=== PATIENT | male | born 1985 | race American Indian/Alaskan Native ===

== ENCOUNTER 2017-07-22 16:52 | Emergency (ER) | payer SELFPAY ==
--- NOTE | 2017-07-22 19:27 | Emergency Department Report ---
ED Lower Extremity HPI - General Chief Complaint: Extremity Injury, Lower Stated Complaint: RT LEG/KNEE PAIN Time Seen by Provider: 07/22/17 19:16 Source: patient Mode of arrival: Ambulatory Limitations: No Limitations - History of Present Illness Initial Comments: Pt presents to ED with c/o fall off a [employer] truck. Pt sustained right knee injury. No head injury , no LOC. Pt c/o some discomfort in his right knee. Pt had mild swelling with some tenderness. Pt uses a rt knee brace and has being applying icy hot. Pain is getting better. , swelling has resolved MD Complaint: knee injury -: days(s) (5) Injury: Knee: Right Type of Injury: other (twisting motion on right knee) Place: work Severity: moderate Severity scale (0 -10): 7 (now pain is much better) Improves With: cold therapy, other (icy hot, knee brace) Context: fall (off an [employer] truck) Associated Symptoms: swelling, able to partially bear weight. denies: numbness , tingling Treatments Prior to Arrival: cold therapy, bandage, splint (knee brace) - Related Data Previous Rx's Medication Instructions Recorded Last Taken Type Ibuprofen [Motrin 800 MG tab] 800 mg PO Q8HR PRN #30 tablet 07/22/17 Unknown Rx Orphenadrine (Nf) [Norflex (Nf)] 100 mg PO BID #14 tablet 07/22/17 Unknown Rx Allergies Allergy/AdvReac Type Severity Reaction Status Date / Time No Known Allergies Allergy Verified 07/22/17 18:21 ED Review of Systems ROS: Stated complaint: RT LEG/KNEE PAIN Other details as noted in HPI Comment: All other systems reviewed and negative Constitutional: denies: diaphoresis, fever, malaise, weakness, other Eyes: denies: eye pain, eye discharge, vision change ENT: denies: throat pain, dental pain, hearing loss Respiratory: denies: see HPI, cough, orthopnea, shortness of breath, SOB with exertion Cardiovascular: denies: chest pain, palpitations, edema, syncope Endocrine: no symptoms reported. denies: excessive sweating, intolerance to cold, increased hunger, increased thirst Gastrointestinal: denies: abdominal pain, nausea, vomiting, diarrhea, constipation Musculoskeletal: as per HPI, joint swelling, arthralgia (right knee). denies: myalgia, other Skin: denies: lesions, change in color, change in hair/nails Neurological: denies: headache, weakness, numbness, confusion ED Past Medical Hx - Past Medical History Previous Medical History?: No - Surgical History Past Surgical History?: Yes Additional Surgical History: Inguinal hernia repair - Social History Smoking Status: Never Smoker Substance Use Type: Marijuana - Medications Home Medications: Home Medications Medication Instructions Recorded Confirmed Last Taken Type Ibuprofen [Motrin 800 MG tab] 800 mg PO Q8HR PRN #30 tablet 07/22/17 Unknown Rx Orphenadrine (Nf) [Norflex (Nf)] 100 mg PO BID #14 tablet 07/22/17 Unknown Rx ED Physical Exam - General Limitations: No Limitations General appearance: alert, in no apparent distress - Head Head exam: Present: atraumatic, normocephalic, normal inspection - Eye Eye exam: Present: normal appearance, PERRL, EOMI. Absent: scleral icterus, conjunctival injection, nystagmus Pupils: Present: normal accommodation - ENT ENT exam: Present: normal exam, normal orophraynx, mucous membranes moist, normal external ear exam - Neck Neck exam: Present: normal inspection, full ROM. Absent: meningismus, lymphadenopathy, thyromegaly - Respiratory Respiratory exam: Present: normal lung sounds bilaterally. Absent: respiratory distress, chest wall tenderness, accessory muscle use, decreased breath sounds - Cardiovascular Cardiovascular Exam: Present: regular rate, normal rhythm, normal heart sounds. Absent: irregular rhythm, systolic murmur, diastolic murmur, rubs - GI/Abdominal GI/Abdominal exam: Present: soft, normal bowel sounds. Absent: distended, tenderness, guarding, rebound, hyperactive bowel sounds, hypoactive bowel sounds - Rectal Rectal exam: Present: deferred - Expanded Lower Extremity Exam Right Hip exam: Present: normal inspection, full ROM. Absent: tenderness, swelling, laceration, ecchymosis Upper Leg exam: Present: normal inspection, full ROM. Absent: tenderness, swelling, abrasion Knee exam: Present: normal inspection, full ROM, tenderness (mild). Absent: swelling, abrasion, laceration, dislocation, erythema, effusion Lower Leg exam: Present: normal inspection, full ROM. Absent: tenderness, swelling, abrasion, laceration, ecchymosis Ankle exam: Present: normal inspection, full ROM. Absent: abrasion, laceration Foot/Toe exam: Present: normal inspection, full ROM. Absent: tenderness, swelling, dislocation, erythema Neuro vascular tendon exam: Present: no vascular compromise Gait: Positive: observed and normal - Back Exam Back exam: Present: normal inspection, full ROM. Absent: tenderness, CVA tenderness (L) - Neurological Exam Neurological exam: Present: alert, oriented X3, CN II-XII intact, normal gait ED Course Vital Signs 07/22/17 18:21 Temperature 98 F Pulse Rate 65 Respiratory 18 Rate Blood Pressure 126/85 O2 Sat by Pulse 98 Oximetry Critical Care Time: No Critical care attestation.: If time is entered above; I have spent that time in minutes in the direct care of this critically ill patient, excluding procedure time. ED Disposition Clinical Impression: Right knee sprain Disposition: - TO HOME OR SELFCARE Is pt being admited?: No Does the pt Need Aspirin: No Condition: Stable Instructions: Knee Sprain (ED), Knee Exercises (GEN), Hinged Knee Brace (ED) Additional Instructions: Follow up with your PCP in 2-3 days Prescriptions: Ibuprofen [Motrin 800 MG tab] 800 mg PO Q8HR PRN #30 tablet PRN Reason: Pain Orphenadrine (Nf) [Norflex (Nf)] 100 mg PO BID #14 tablet Referrals: PRIMARY CARE, [Primary Care Provider] - 3-5 Days Time of Disposition: 19:27
[2017-07-22 19:51] VITALS: BP 120/83
== END 2017-07-22 19:52 | disposition home or self-care (01) ==
LOC: ED 16:52
DX: S83.91XA Sprain of unspecified site of right knee, initial encounter (principal); F12.10 Cannabis abuse, uncomplicated; X58.XXXA Exposure to other specified factors, initial encounter; Y93.89 Activity, other specified; Y92.89 Other specified places as the place of occurrence of the external cause; Y99.8 Other external cause status
CPT/HCPCS: 99282